=== PATIENT | male | born 1985 | race African-American/Black ===

== ENCOUNTER 2020-10-09 15:28 | Emergency (ER) | payer OTHER ==
[~2020-10-09] VITALS: Ht 167.6 cm; Wt 103.0 kg
[2020-10-09 15:32] VITALS: BP 115/72
--- NOTE | 2020-10-09 15:40 | NUR ---
PT TAKEN TO BED 4.
--- NOTE | 2020-10-09 15:45 | NUR ---
DR. HEATON AT BEDSIDE EVALUATING PT
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
--- NOTE | 2020-10-09 15:52 | NUR ---
RT AT BEDSIDE OBTAINING ABG
--- NOTE | 2020-10-09 16:00 | NUR ---
RAD AT BEDSIDE
[2020-10-09] MEDS: NACL 0.9% 500 ML IV ONE (16:11)
[2020-10-09 16:16] LABS: BASOPHILS # (AUTO) 0.1 K/uL (0.00-0.22); BASOPHILS % (AUTO) 1.5 % (0.0-2.0); EOSINOPHILS # (AUTO) 0.2 K/uL (0-0.4); HEMATOCRIT 45.8 % (36-52); HEMOGLOBIN 15.2 g/dL (12.0-18.0); LYMPHOCYTES # (AUTO) 2.7 K/uL (2.0-11.5); LYMPHOCYTES % (AUTO) 38.2 % (20.5-51.1); MEAN CORPUSCULAR HEMOGLOBIN 30 pg (27-31); MEAN CORPUSCULAR HGB CONC 33 g/dL (33-37); MEAN CORPUSCULAR VOLUME 91.6 fL (80-94); MONOCYTES # (AUTO) 0.7 K/uL (0.8-1.0); NEUTROPHILS # (AUTO) 3.3 K/uL (1.8-7.7); NEUTROPHILS % (AUTO) 47.3 % (42.2-75.2); PLATELET COUNT (AUTO) 270 K/uL (140-450); RED CELL DISTRIBUTION WIDTH 13.4 % (11.6-13.7)
[2020-10-09 16:43] LABS: ACETONE, SERUM NEGATIVE (NEGATIVE)
--- NOTE | 2020-10-09 16:45 | NUR ---
PT RESTING IN SEMI-FOWLERS POSITION. ALL PT NEEDS MET AT THIS TIME. DIRECTOR [employer] IN PLACE. VSS. EQUAL CHEST RISE AND FALL. BED LOCKED IN LOWEST POSITION, SIDE RAILS X 1, CALL LIGHT IN REACH
[2020-10-09 16:48] LABS: ANION GAP 13.9 (8-16); ASPARTATE AMINOTRANSFERASE 86 U/L (15-37); CHLORIDE 100 mmol/L (98-107); CREATININE 1.6 mg/dL (0.6-1.3); GFR ARICAN-AMERICAN 64 mL/min (>90); POTASSIUM 3.9 mmol/L (3.5-5.1); SODIUM SERUM 134 mmol/L (136-145); TOTAL BILIRUBIN 0.5 mg/dL (0.0-1.0); UREA NITROGEN, BLOOD 18 mg/dL (7-18)
[2020-10-09 16:50] LABS: GLUCOSE 420 mg/dL (74-106)
[2020-10-09] MEDS: INSULIN REGULAR, HUMAN 100 UNIT/ML VIAL IVP ONE (17:20)
--- NOTE | 2020-10-09 17:35 | NUR ---
ALL PT NEEDS MET AT THIS TIME. PLANT ETIOLOGIST IN PLACE. CALL LIGHT IN REACH. ACCUCHEK [id number]
--- NOTE | 2020-10-09 18:05 | NUR ---
PT RESTING IN BED WITH NO COMPLAINTS. EQUAL CHEST RISE AND FALL. BUSINESS BROKER IN PLACE. ALL PT NEEDS MET AT THIS TIME
[2020-10-09 18:19] VITALS: BP 102/68
--- NOTE | 2020-10-09 18:19 | NUR ---
Patient discharged with v/s stable. Written and verbal after care instructions given and explained. Patient verbalized understanding. Ambulatory with steady gait. All questions addressed prior to discharge. Advised to follow up with PMD.
== END 2020-10-09 18:19 | disposition home or self-care (01) ==
LOC: MED 15:28
DX: E11.65 Type 2 diabetes mellitus with hyperglycemia (principal); I10 Essential (primary) hypertension; Z90.49 Acquired absence of other specified parts of digestive tract
CPT/HCPCS: 36415; 36600; 71045; 80053; 82009; 82803; 82948; 85025; 96374; 99284; J1815; J7030

== ENCOUNTER 2021-02-08 15:43 | Emergency (ER) | payer OTHER ==
[~2021-02-08] VITALS: Ht 165.1 cm; Wt 112.9 kg
[2021-02-08 15:46] VITALS: BP 137/83
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
--- NOTE | 2021-02-08 15:52 | NUR ---
SUSHILA MONTERO AT BEDSIDE EVALUATING PT
--- NOTE | 2021-02-08 16:04 | NUR ---
RAD AT BEDSIDE
[2021-02-08] MEDS ORDERED: SULF-58 PO (16:53)
[2021-02-08] MEDS ORDERED: IBUP-1842 PO (16:53)
[2021-02-08] MEDS ORDERED: KETOROLAC 30 MG/ML VIAL IM ONE (16:55)
--- NOTE | 2021-02-08 17:11 | NUR ---
Note mistinicole in EDM - 02/08/21 at 1718 by [email or web address] Patient discharged with v/s stable. Written and verbal after care instructions given and explained. Patient alert, oriented and verbalized understanding of instructions. Ambulatory with steady gait. All questions addressed prior to discharge. ID band removed. Patient advised to follow up with PMD. Rx of IBUPROFEN AND SULFAMETHOXAZOLE/TRIMETHOPRIM (BACTRIM 400-80MG TAB) given. Patient educated on indication of medication including possible reaction and side effects. Opportunity to ask questions provided and answered.
--- NOTE | 2021-02-08 17:11 | NUR ---
Patient discharged with v/s stable. Written and verbal after care instructions ABOUT SKIN ABSCESS given and explained. Patient alert, oriented and verbalized understanding of instructions. Ambulatory with steady gait. All questions addressed prior to discharge. ID band removed. Patient advised to follow up with PMD. Rx of IBUPROFEN AND SULFAMETHOXAZOLE/TRIMETHOPRIM (BACTRIM 400-80MG TAB) given. Patient educated on indication of medication including possible reaction and side effects. Opportunity to ask questions provided and answered.
[2021-02-08 17:15] VITALS: BP 137/83
== END 2021-02-08 17:11 | disposition home or self-care (01) ==
LOC: MED 15:43
DX: M79.641 Pain in right hand (principal); M25.531 Pain in right wrist; E11.9 Type 2 diabetes mellitus without complications; K21.9 Gastro-esophageal reflux disease without esophagitis; I10 Essential (primary) hypertension; Z90.49 Acquired absence of other specified parts of digestive tract; Z79.899 Other long term (current) drug therapy
CPT/HCPCS: 73110; 73130; 96372; 99284; J1885

== ENCOUNTER 2021-05-31 19:21 | Emergency (ER) | payer OTHER ==
[~2021-05-31] VITALS: Ht 167.6 cm; Wt 117.9 kg
[~2021-05-31 19:21] MED LIST: IBUP-1842 PO; SULF-58 PO
[2021-05-31 20:06] VITALS: BP 148/92
[2021-05-31] MEDS ORDERED: KETOROLAC 60 MG/2 ML VIAL IM ONE (21:25)
[2021-05-31] MEDS ORDERED: MORPHINE SULFATE 4 MG/ML SYR IM ONE (21:25)
[2021-05-31] MEDS ORDERED: NAPR-54 PO (21:43)
--- NOTE | 2021-05-31 21:53 | NUR ---
Patient discharged with v/s stable. Written and verbal after care instructions given and explained. Patient alert, oriented and verbalized understanding of instructions. Wheel Chair Assisted with by EMT. All questions addressed prior to discharge. ID band removed. Patient advised to follow up with PMD. Rx of given. Patient educated on indication of medication including possible reaction and side effects. Opportunity to ask questions provided and answered.
== END 2021-05-31 21:53 | disposition home or self-care (01) ==
LOC: MED 19:21
DX: S33.5XXA Sprain of ligaments of lumbar spine, initial encounter (principal); E11.9 Type 2 diabetes mellitus without complications; I10 Essential (primary) hypertension; E03.9 Hypothyroidism, unspecified; F41.9 Anxiety disorder, unspecified; Z79.899 Other long term (current) drug therapy; Z90.49 Acquired absence of other specified parts of digestive tract; Z98.890 Other specified postprocedural states; W19.XXXA Unspecified fall, initial encounter; Y93.89 Activity, other specified; Y92.89 Other specified places as the place of occurrence of the external cause; Y99.8 Other external cause status
CPT/HCPCS: 72100; 96372; 99284; J1885; J2270

== ENCOUNTER 2021-09-22 22:53 | Emergency (ER) | payer OTHER ==
[~2021-09-22] VITALS: Ht 167.6 cm; Wt 113.4 kg
[~2021-09-22 22:53] MED LIST changes: +NAPR-54 PO
[2021-09-22 23:28] VITALS: BP 140/90
[2021-09-23] MEDS ORDERED: KETOROLAC 30 MG/ML VIAL IVP ONE
[2021-09-23] MEDS ORDERED: ONDANSETRON 4 MG/2 ML VIAL IVP ONE
[2021-09-23] MEDS ORDERED: NACL 0.9% 1,000 ML IV ONE
[2021-09-23] MEDS ORDERED: MORPHINE SULFATE 2 MG/ML SYR IVP ONE
[2021-09-23 00:47] LABS: BASOPHILS # (AUTO) 0.1 K/uL (0.00-0.22); BASOPHILS % (AUTO) 1.2 % (0.0-2.0); EOSINOPHILS # (AUTO) 0.4 K/uL (0-0.4); EOSINOPHILS % (AUTO) 3.5 % (0.0-4.0); HEMATOCRIT 46.8 % (36-52); LYMPHOCYTES % (AUTO) 37.9 % (20.5-51.1); MEAN CORPUSCULAR HEMOGLOBIN 30 pg (27-31); MEAN CORPUSCULAR HGB CONC 34 g/dL (33-37); MEAN CORPUSCULAR VOLUME 88.3 fL (80-94); MONOCYTES # (AUTO) 0.9 K/uL (0.8-1.0); MONOCYTES % (AUTO) 8.5 % (1.7-9.3); NEUTROPHILS # (AUTO) 5.2 K/uL (1.8-7.7); NEUTROPHILS % (AUTO) 48.9 % (42.2-75.2); PLATELET COUNT (AUTO) 377 K/uL (140-450); WHITE BLOOD COUNT (AUTO) 10.6 K/uL (4.8-10.8)
[2021-09-23 00:49] LABS: APPEARANCE,URINE CLEAR (CLEAR); BILIRUBIN,URINE NEGATIVE (NEGATIVE); BLOOD, URINE NEGATIVE (NEGATIVE); COLOR,URINE YELLOW (YELLOW); LEUKOCYTE ESTERASE ,URINE NEGATIVE (NEGATIVE); NITRITE, URINE NEGATIVE (NEGATIVE); UGLUCOSE 2+ (NEGATIVE)
[2021-09-23 01:12] LABS: ALBUMIN 3.6 g/dL (3.4-5.0); ANION GAP 12.7 (8-16); CREATININE 1.3 mg/dL (0.6-1.3); POTASSIUM 3.7 mmol/L (3.5-5.1); TOTAL BILIRUBIN 0.3 mg/dL (0.0-1.0)
--- NOTE | 2021-09-23 01:27 | NUR ---
PT MOVED TO BED 14
[2021-09-23] MEDS ORDERED: KETOROLAC 30 MG/ML VIAL ONE (01:40)
[2021-09-23] MEDS ORDERED: ONDANSETRON 4 MG/2 ML VIAL ONE (01:41)
[2021-09-23] MEDS ORDERED: MORPHINE SULFATE 2 MG/ML SYR ONE (01:41)
[2021-09-23 05:26] VITALS: BP 140/90
== END 2021-09-23 05:26 | disposition home or self-care (01) ==
LOC: MED 22:53
DX: R10.9 Unspecified abdominal pain (principal); R05.9 Cough, unspecified; R06.7 Sneezing; E11.9 Type 2 diabetes mellitus without complications; I10 Essential (primary) hypertension; E03.9 Hypothyroidism, unspecified; Z79.899 Other long term (current) drug therapy
CPT/HCPCS: 36415; 74176; 80053; 81003; 85025; 96361; 96374; 96375; 99284; J1885; J2270; J2405; J7030

== ENCOUNTER 2021-12-23 21:13 | Emergency (ER) | payer OTHER ==
[~2021-12-23] VITALS: Ht 167.6 cm; Wt 108.9 kg
[2021-12-23 21:29] VITALS: BP 148/76
[2021-12-23] MEDS ORDERED: MECLIZINE 25 MG TAB PO ONE (22:15)
[2021-12-23 23:00] LABS: BASOPHILS % (AUTO) 0.5 % (0.0-2.0); EOSINOPHILS # (AUTO) 0.4 K/uL (0-0.4); HEMATOCRIT 46.2 % (36-52); HEMOGLOBIN 15.2 g/dL (12.0-18.0); LYMPHOCYTES # (AUTO) 3.7 K/uL (2.0-11.5); LYMPHOCYTES % (AUTO) 41.4 % (20.5-51.1); MEAN CORPUSCULAR HEMOGLOBIN 29 pg (27-31); MEAN CORPUSCULAR HGB CONC 33 g/dL (33-37); MEAN CORPUSCULAR VOLUME 89.1 fL (80-94); MONOCYTES # (AUTO) 0.8 K/uL (0.8-1.0); MONOCYTES % (AUTO) 9.6 % (1.7-9.3); NEUTROPHILS % (AUTO) 44.5 % (42.2-75.2); PLATELET COUNT (AUTO) 315 K/uL (140-450); RED BLOOD CELL COUNT(AUTO) 5.18 MIL/uL (4.20-6.10); RED CELL DISTRIBUTION WIDTH 14.1 % (11.6-13.7); WHITE BLOOD COUNT (AUTO) 8.9 K/uL (4.8-10.8)
[2021-12-23 23:16] LABS: ALBUMIN 3.6 g/dL (3.4-5.0); ANION GAP 14.1 (8-16); CARBON DIOXIDE 26.4 mmol/L (21-32); CREATININE 1.6 mg/dL (0.6-1.3); POTASSIUM 3.5 mmol/L (3.5-5.1); TOTAL BILIRUBIN 0.3 mg/dL (0.0-1.0)
[2021-12-23] MEDS ORDERED: ONDANSETRON 4 MG/2 ML VIAL IVP ONE (23:40)
[2021-12-23] MEDS ORDERED: DIAZEPAM PFS 10 MG/2 ML SYR IVP ONE (23:40)
[2021-12-23] MEDS ORDERED: NACL 0.9% 500 ML IV ONE (23:40)
[2021-12-24] MEDS ORDERED: DIAZ5TAB8 PO (01:28)
[2021-12-24] MEDS ORDERED: MECL-303 PO (01:28)
[2021-12-24] MEDS ORDERED: ONDA-188 PO (01:28)
[2021-12-24 01:39] VITALS: BP 126/69
== END 2021-12-24 01:39 | disposition home or self-care (01) ==
LOC: MED 21:13
DX: R42 Dizziness and giddiness (principal); R11.0 Nausea; R51.9 Headache, unspecified; J45.909 Unspecified asthma, uncomplicated; E11.9 Type 2 diabetes mellitus without complications; I10 Essential (primary) hypertension; E03.9 Hypothyroidism, unspecified; Z79.899 Other long term (current) drug therapy
CPT/HCPCS: 36415; 70450; 80053; 85025; 93005; 96374; 96375; 99285; J2405; J3360; J7030; J8597

== ENCOUNTER 2022-04-03 16:39 | Emergency (ER) | payer OTHER ==
[~2022-04-03] VITALS: Ht 167.6 cm; Wt 111.1 kg
[~2022-04-03 16:39] MED LIST changes: +DIAZ5TAB8 PO; +MECL-303 PO; +ONDA-188 PO
[2022-04-03 16:46] VITALS: BP 135/82
[2022-04-03] MEDS ORDERED: LORazepam 1 MG TAB PO ONE (17:15)
[2022-04-03] MEDS ORDERED: IBUPROFEN 600 MG TAB PO ONE (17:15)
[2022-04-03] MEDS ORDERED: ACET-8983 PO (18:52)
[2022-04-03] MEDS ORDERED: IBUP-2213 PO (18:52)
== END 2022-04-03 19:11 | disposition home or self-care (01) ==
LOC: MED 16:39
DX: S31.112A Laceration without foreign body of abdominal wall, epigastric region without penetration into peritoneal cavity, initial encounter (principal); S60.221A Contusion of right hand, initial encounter; E03.9 Hypothyroidism, unspecified; E11.9 Type 2 diabetes mellitus without complications; I10 Essential (primary) hypertension; J45.909 Unspecified asthma, uncomplicated; Z79.4 Long term (current) use of insulin; Z79.899 Other long term (current) drug therapy; W45.8XXA Other foreign body or object entering through skin, initial encounter; Y93.89 Activity, other specified; Y92.89 Other specified places as the place of occurrence of the external cause; Y99.8 Other external cause status
CPT/HCPCS: 29125; 73130; 90471; 90715; 99283; Q0092

== ENCOUNTER 2022-05-17 21:57 | Emergency (ER) | payer OTHER ==
[~2022-05-17] VITALS: Ht 167.6 cm; Wt 104.3 kg
[~2022-05-17 21:57] MED LIST changes: +ACET-8983 PO; +IBUP-2213 PO
[2022-05-17 22:00] VITALS: BP 136/88
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
--- NOTE | 2022-05-17 22:05 | NUR ---
PT SHELDON ALS. TAKEN TO BED 2
[2022-05-17] MEDS ORDERED: ACETAMINOPHEN EXTRA STRENGTH 500 MG TAB PO ONE (22:30)
[2022-05-17] MEDS ORDERED: LORazepam 1 MG TAB PO ONE (23:30)
[2022-05-17] MEDS ORDERED: KETOROLAC 30 MG/ML VIAL IM ONE (23:30)
--- NOTE | 2022-05-18 00:25 | NUR ---
Dr. Child performing proceedure of woundcare on patient. PAtient tolerating proceedure well, no c/o pain or s/s of discomfort. Addendum: 05/18/22 at [id number] Child performing proceedure of woundcare on patient. Patient tolerating proceedure well, no c/o pain or s/s of discomfort.
[2022-05-18] MEDS ORDERED: BACO TP (00:36)
[2022-05-18 01:14] VITALS: BP 124/78
--- NOTE | 2022-05-18 01:15 | NUR ---
Patient discharged with v/s stable. Written and verbal after care instructions given and explained. Patient alert, oriented and verbalized understanding of instructions. Patient given excuse note for college. Ambulatory with steady gait. All questions addressed prior to discharge. ID band removed. Patient advised to follow up with PMD. Rx of given. Patient educated on indication of medication including possible reaction and side effects. Opportunity to ask questions provided and answered.
== END 2022-05-18 01:15 | disposition home or self-care (01) ==
LOC: MED 21:57
DX: S31.111A Laceration without foreign body of abdominal wall, left upper quadrant without penetration into peritoneal cavity, initial encounter (principal); S51.812A Laceration without foreign body of left forearm, initial encounter; J45.909 Unspecified asthma, uncomplicated; E11.9 Type 2 diabetes mellitus without complications; I10 Essential (primary) hypertension; E03.9 Hypothyroidism, unspecified; F41.9 Anxiety disorder, unspecified; F32.9 Major depressive disorder, single episode, unspecified; Z79.1 Long term (current) use of non-steroidal anti-inflammatories (NSAID); Z79.891 Long term (current) use of opiate analgesic; Z79.899 Other long term (current) drug therapy; Z79.2 Long term (current) use of antibiotics; W45.8XXA Other foreign body or object entering through skin, initial encounter; Y93.89 Activity, other specified; Y92.89 Other specified places as the place of occurrence of the external cause; Y99.8 Other external cause status
CPT/HCPCS: 12001; 96372; 99283; J1885

== ENCOUNTER 2022-06-16 15:59 | Emergency (ER) | payer OTHER ==
[~2022-06-16] VITALS: Ht 170.2 cm; Wt 114.3 kg
[~2022-06-16 15:59] MED LIST changes: +BACO TP
[2022-06-16 16:13] VITALS: BP 139/73
[2022-06-16] MEDS ORDERED: ACET-10509 PO (19:41)
[2022-06-16 20:55] VITALS: BP 123/81
--- NOTE | 2022-06-16 20:55 | NUR ---
PT LEFT WITHOUT SIGNING AND RECEIVING ACI
== END 2022-06-16 20:55 | disposition home or self-care (01) ==
LOC: MED 15:59
DX: S06.0X1A Concussion with loss of consciousness of 30 minutes or less, initial encounter (principal); S70.02XA Contusion of left hip, initial encounter; J45.909 Unspecified asthma, uncomplicated; E11.9 Type 2 diabetes mellitus without complications; E03.9 Hypothyroidism, unspecified; I10 Essential (primary) hypertension; F41.9 Anxiety disorder, unspecified; Z79.899 Other long term (current) drug therapy; W06.XXXA Fall from bed, initial encounter; Y93.89 Activity, other specified; Y92.89 Other specified places as the place of occurrence of the external cause; Y99.8 Other external cause status
CPT/HCPCS: 70450; 72125; 73502; 99284; Q0092

== ENCOUNTER 2022-07-29 23:15 | Emergency (ER) | payer OTHER ==
[~2022-07-29] VITALS: Ht 167.6 cm; Wt 116.1 kg
[~2022-07-29 23:15] MED LIST changes: +ACET-10509 PO
[2022-07-29 23:21] VITALS: BP 160/102
--- NOTE | 2022-07-29 23:25 | NUR ---
TO LOBBY A/W BED AMBULATORY
[2022-07-30 01:22] LABS: APPEARANCE,URINE CLEAR (CLEAR); BILIRUBIN,URINE NEGATIVE (NEGATIVE); BLOOD, URINE NEGATIVE (NEGATIVE); COLOR,URINE YELLOW (YELLOW); LEUKOCYTE ESTERASE ,URINE NEGATIVE (NEGATIVE); NITRITE, URINE NEGATIVE (NEGATIVE); PH,URINE 6.5 (5.0-9.0); UGLUCOSE TRACE (NEGATIVE)
--- NOTE | 2022-07-30 01:30 | NUR ---
PT TO BED 3
--- NOTE | 2022-07-30 01:31 | NUR ---
Patient lying in bed, A/Ox4, chest rise and fall symmetrical, no s/s of distress.
[2022-07-30] MEDS ORDERED: NACL 0.9% 1,000 ML IV ONE (01:35)
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
[2022-07-30] MEDS ORDERED: MORPHINE SULFATE 4 MG/ML SYR IVP ONE (01:55)
--- NOTE | 2022-07-30 02:00 | NUR ---
SECOND IV ESTABLISHED TO [facility] FOR CT WITH CONTRAST. BLOOD DRAWN WITH IV START.
[2022-07-30 02:20] LABS: BASOPHILS % (AUTO) 0.4 % (0.0-2.0); EOSINOPHILS # (AUTO) 0.5 K/uL (0-0.4); EOSINOPHILS % (AUTO) 4.4 % (0.0-4.0); HEMATOCRIT 44.4 % (36-52); HEMOGLOBIN 14.7 g/dL (12.0-18.0); LYMPHOCYTES # (AUTO) 2.8 K/uL (2.0-11.5); LYMPHOCYTES % (AUTO) 26.2 % (20.5-51.1); MEAN CORPUSCULAR HEMOGLOBIN 30 pg (27-31); MEAN CORPUSCULAR HGB CONC 33 g/dL (33-37); MEAN CORPUSCULAR VOLUME 90.3 fL (80-94); MONOCYTES # (AUTO) 0.9 K/uL (0.8-1.0); NEUTROPHILS # (AUTO) 6.6 K/uL (1.8-7.7); PLATELET COUNT (AUTO) 302 K/uL (140-450); RED BLOOD CELL COUNT(AUTO) 4.91 MIL/uL (4.20-6.10); RED CELL DISTRIBUTION WIDTH 13.4 % (11.6-13.7); WHITE BLOOD COUNT (AUTO) 10.8 K/uL (4.8-10.8)
[2022-07-30 02:53] LABS: ALBUMIN 3.7 g/dL (3.4-5.0); CARBON DIOXIDE 24.4 mmol/L (21-32); CREATININE 1.3 mg/dL (0.6-1.3); TOTAL BILIRUBIN 0.2 mg/dL (0.0-1.0)
[2022-07-30 02:56] LABS: ANION GAP 12.7 (8-16); POTASSIUM 4.1 mmol/L (3.5-5.1)
--- NOTE | 2022-07-30 03:10 | NUR ---
[facility] AT BEDSIDE FOR TX AND RETURN TO [place] FOR CT SCAN.
--- NOTE | 2022-07-30 03:20 | NUR ---
Patient left with [facility] to go to [facility] to get CT and return.
--- NOTE | 2022-07-30 04:50 | NUR ---
Patient returned with [facility] from transport to [facility] to get CT.
--- NOTE | 2022-07-30 05:04 | NUR ---
Patient lying in bed, A/Ox4, chest rise and fall symmetrical, no c/o pain or s/s of discomfort.
[2022-07-30] MEDS ORDERED: HYDR25SU91 RC (06:17)
[2022-07-30] MEDS ORDERED: NAPR-54 PO (06:17)
[2022-07-30 06:34] VITALS: BP 118/74
== END 2022-07-30 06:35 | disposition home or self-care (01) ==
LOC: MED 23:15
DX: R10.2 Pelvic and perineal pain (principal); J45.909 Unspecified asthma, uncomplicated; E11.9 Type 2 diabetes mellitus without complications; I10 Essential (primary) hypertension; E03.9 Hypothyroidism, unspecified; Z79.899 Other long term (current) drug therapy; Z90.49 Acquired absence of other specified parts of digestive tract
CPT/HCPCS: 36415; 80053; 81003; 83690; 85025; 96361; 96374; 99283; J2270; J7030

== ENCOUNTER 2022-11-18 21:17 | Emergency (ER) | payer OTHER ==
[~2022-11-18] VITALS: Ht 167.6 cm; Wt 110.2 kg
[~2022-11-18 21:17] MED LIST changes: +HYDR25SU91 RC
[2022-11-18 21:24] VITALS: BP 132/98
[2022-11-18] MEDS ORDERED: KETOROLAC 60 MG/2 ML VIAL IM ONE (22:05)
--- NOTE | 2022-11-18 22:08 | NUR ---
PT TAKEN TO XR VIA W/C
--- NOTE | 2022-11-18 22:36 | NUR ---
37yo M here for R ankle pain x 1 week. Pt was jumping on trampoline. Seen at outside hospital and was told no fx. Pt has been elevating ankle and taking ibuprofen without relief. Complaining of 10/10 pain now. Complaining of R ankle pain radiating up the leg. Minimal swelling noted, no wound, no erethyma
--- NOTE | 2022-11-19 00:08 | NUR ---
Pt to CT Scan
--- NOTE | 2022-11-19 00:42 | NUR ---
Resting at this time. VS stable. Still complaining of 10/10 R ankle pain. Does not appear in distress
--- NOTE | 2022-11-19 03:10 | NUR ---
Splint placed to R ankle.
[2022-11-19] MEDS ORDERED: NAPR-54 PO (03:30)
[2022-11-19 03:38] VITALS: BP 130/85
--- NOTE | 2022-11-19 03:39 | NUR ---
Cleared to discharge home. Instructions and prescription given. CD of CT scan given. Instructed to follow up c PMD. Ambulated out of ED using crutches. No distress.
== END 2022-11-19 03:38 | disposition home or self-care (01) ==
LOC: MED 21:17
DX: S93.401A Sprain of unspecified ligament of right ankle, initial encounter (principal); J45.909 Unspecified asthma, uncomplicated; E11.9 Type 2 diabetes mellitus without complications; I10 Essential (primary) hypertension; E03.9 Hypothyroidism, unspecified; E78.00 Pure hypercholesterolemia, unspecified; F41.9 Anxiety disorder, unspecified; Z79.899 Other long term (current) drug therapy; Z79.1 Long term (current) use of non-steroidal anti-inflammatories (NSAID); Z79.2 Long term (current) use of antibiotics; X58.XXXA Exposure to other specified factors, initial encounter; Y92.89 Other specified places as the place of occurrence of the external cause; Y93.89 Activity, other specified; Y99.8 Other external cause status
CPT/HCPCS: 73610; 73700; 96372; 99285; J1885

== ENCOUNTER 2022-12-04 19:50 | Emergency (ER) | payer OTHER ==
[~2022-12-04] VITALS: Ht 167.6 cm; Wt 110.2 kg
[2022-12-04 20:00] VITALS: BP 160/85
--- NOTE | 2022-12-04 20:03 | NUR ---
TO LOBBY A/W BED AMBULATORY
[2022-12-04 21:10] LABS: BASOPHILS # (AUTO) 0.1 K/uL (0.00-0.22); EOSINOPHILS # (AUTO) 0.4 K/uL (0-0.4); EOSINOPHILS % (AUTO) 3.5 % (0.0-4.0); HEMATOCRIT 47.2 % (36-52); HEMOGLOBIN 15.3 g/dL (12.0-18.0); LYMPHOCYTES # (AUTO) 2.8 K/uL (2.0-11.5); LYMPHOCYTES % (AUTO) 23.5 % (20.5-51.1); MEAN CORPUSCULAR HEMOGLOBIN 29 pg (27-31); MEAN CORPUSCULAR HGB CONC 32 g/dL (33-37); MEAN CORPUSCULAR VOLUME 88.4 fL (80-94); MONOCYTES # (AUTO) 1.1 K/uL (0.8-1.0); MONOCYTES % (AUTO) 8.9 % (1.7-9.3); NEUTROPHILS # (AUTO) 7.5 K/uL (1.8-7.7); NEUTROPHILS % (AUTO) 63.1 % (42.2-75.2); PLATELET COUNT (AUTO) 338 K/uL (140-450); RED BLOOD CELL COUNT(AUTO) 5.34 MIL/uL (4.20-6.10); RED CELL DISTRIBUTION WIDTH 13.9 % (11.6-13.7); WHITE BLOOD COUNT (AUTO) 11.9 K/uL (4.8-10.8)
[2022-12-04 21:32] LABS: ALBUMIN 3.8 g/dL (3.4-5.0); ANION GAP 13.8 (8-16); ASPARTATE AMINOTRANSFERASE 22 U/L (15-37); CARBON DIOXIDE 25.9 mmol/L (21-32); CHLORIDE 103 mmol/L (98-107); CREATININE 1.4 mg/dL (0.6-1.3); GFR ARICAN-AMERICAN 74 mL/min (>90); GLUCOSE 87 mg/dL (74-106); POTASSIUM 3.7 mmol/L (3.5-5.1); SODIUM SERUM 139 mmol/L (136-145); TOTAL BILIRUBIN 0.3 mg/dL (0.0-1.0); UREA NITROGEN, BLOOD 17 mg/dL (7-18)
--- NOTE | 2022-12-04 22:20 | NUR ---
pt called in lobby and outside to complete ekg. pt not found.
--- NOTE | 2022-12-04 22:32 | NUR ---
pt called in lobby and outside for a seond time with no answer. pt lwbs.
== END 2022-12-04 22:20 | disposition left against medical advice (07) ==
LOC: MED 19:50
DX: R07.9 Chest pain, unspecified (principal); Z53.21 Procedure and treatment not carried out due to patient leaving prior to being seen by health care provider
CPT/HCPCS: 36415; 71045; 80053; 84484; 85025; 99281